=== PATIENT | male | born 1940 | race Caucasian/White ===

== ENCOUNTER 2020-03-31 07:53 | Outpatient (REF) | payer MEDICARE, OTHER, SELFPAY ==
[2020-03-31 11:59] LABS: Prostate Specific Antigen 1.48 ng/mL (<0.05-4.0)
== END 2020-03-31 07:54 | disposition home or self-care (01) ==
LOC: HO.HMGCLDS 07:53
PROVIDERS: PCP Internal Medicine; Visit Provider Physician Assistant Surgical
DX: N40.0 Benign prostatic hyperplasia without lower urinary tract symptoms (principal); Z12.5 Encounter for screening for malignant neoplasm of prostate
CPT/HCPCS: 84153

== ENCOUNTER 2021-02-15 11:42 | Outpatient (REF) | payer MEDICARE, OTHER, SELFPAY ==
[2021-02-15 14:36] LABS: Alanine Aminotransferase 15 U/L (0-40); Albumin Level 4.3 g/dL (3.5-5.0); Alkaline Phosphatase 58 U/L (39-117); Anion Gap 13 (12-20); Aspartate Amino Transferase 17 U/L (5-37); Bilirubin Direct 0.2 mg/dL (0.0-0.5); Bilirubin Total 0.5 mg/dL (0.0-1.0); Blood Urea Nitrogen 21 mg/dL (9-16); Carbon Dioxide 26 mmol/L (22-29); Chloride 105 mmol/L (96-108); Cholesterol 227 mg/dL; Estimated Glomerular Filt Rate > 60; Glucose Random 72 mg/dL (60-115); HDL Cholesterol 63 mg/dL; LDL Cholesterol Calculated 133 mg/dl; Potassium 4.7 mmol/L (3.3-5.1); Sodium 139 mmol/L (135-145); Triglycerides 157 mg/dL
== END 2021-02-15 11:43 | disposition home or self-care (01) ==
LOC: HO.10HDL 11:42
PROVIDERS: Visit Provider Internal Medicine
DX: I10 Essential (primary) hypertension (principal)
CPT/HCPCS: 36415; 80048; 80061; 80076

== ENCOUNTER 2021-03-28 07:43 | Outpatient (REF) | payer MEDICARE, OTHER, SELFPAY | END 2021-03-28 07:44 | disposition home or self-care (01) | LOC: HO.HMGCLDS 07:43 | PROVIDERS: PCP Internal Medicine; Visit Provider Physician Assistant Surgical | DX: R97.20 Elevated prostate specific antigen [PSA] (principal); Z12.5 Encounter for screening for malignant neoplasm of prostate | CPT/HCPCS: 36415; 84153 ==

== ENCOUNTER 2021-04-26 11:14 | Outpatient (REF) | payer MEDICARE, OTHER, SELFPAY ==
[2021-04-26 14:10] LABS: Appearance Urine CLEAR; Color Urine YELLOW; Glucose Urine UA NEG (NEG); Leukocyte Esterase Urine NEG (NEG); Nitrite Urine NEG (NEG); Specific Gravity - Urine <= 1.005 (1.005-1.025); Urine Blood NEG (NEG); Urine Ketones NEG (NEG); Urine Protein NEG (NEG-TRACE)
[2021-04-26 14:12] LABS: Hematocrit 42.2 % (42.0-52.0); Hemoglobin 14.4 g/dl (14.0-18.0); Mean Corpuscular HGB Conc 34.1 g/dl (31.0-36.0); Mean Corpuscular Hemoglobin 32.4 pg (27.0-33.0); Mean Corpuscular Volume 94.8 fL (80.0-98.0); Mean Platelet Volume 9.1 fL (9.4-12.4); Platelet Count 155 X10*3/uL (160-400); Red Blood Count 4.45 X10*6/uL (4.60-5.80); Red Cell Distribution Width 13.2 % (11.0-16.0); White Blood Count 6.3 X10*3/uL (4.8-10.8)
[2021-04-26 14:28] LABS: Alanine Aminotransferase 19 U/L (0-40); Albumin Level 3.6 g/dL (3.5-5.0); Alkaline Phosphatase 45 U/L (39-117); Anion Gap 10 (12-20); Aspartate Amino Transferase 15 U/L (5-37); Bilirubin Direct 0.2 mg/dL (0.0-0.5); Bilirubin Total 0.5 mg/dL (0.0-1.0); Blood Urea Nitrogen 17 mg/dL (9-16); Calcium 8.9 mg/dL (8.4-10.2); Carbon Dioxide 29 mmol/L (22-29); Chloride 106 mmol/L (96-108); Cholesterol 214 mg/dL; Estimated Glomerular Filt Rate 57; Glucose Random 127 mg/dL (60-115); HDL Cholesterol 57 mg/dL; LDL Cholesterol Calculated 127 mg/dl; Potassium 4.3 mmol/L (3.3-5.1); Sodium 141 mmol/L (135-145); Total Protein 6.2 g/dL (6.5-8.0); Triglycerides 151 mg/dL
[2021-04-26 14:49] LABS: Thyroid Stimulating Hormone 0.82 uIU/mL (0.32-4.0)
== END 2021-04-26 11:15 | disposition home or self-care (01) ==
LOC: HO.HMGCLDS 11:14
PROVIDERS: PCP Internal Medicine; Visit Provider Internal Medicine
DX: F41.1 Generalized anxiety disorder (principal); I10 Essential (primary) hypertension
CPT/HCPCS: 36415; 80048; 80061; 80076; 81003; 84443; 85027

== ENCOUNTER 2021-08-16 12:27 | Outpatient (REF) | payer MEDICARE, OTHER, SELFPAY ==
[2021-08-16 14:37] LABS: Prostate Specific Antigen 1.41 ng/mL (<0.05-4.0)
== END 2021-08-16 12:28 | disposition home or self-care (01) ==
LOC: HO.HMGCLDS 12:27
PROVIDERS: Visit Provider Physician Assistant Surgical
DX: Z12.5 Encounter for screening for malignant neoplasm of prostate (principal); R97.20 Elevated prostate specific antigen [PSA]
CPT/HCPCS: 36415; 84153

== ENCOUNTER 2022-05-23 11:41 | Outpatient (REF) | payer MEDICARE, OTHER, SELFPAY ==
--- NOTE | ~2022-05-23 | XR_ITS ---
EXAMINATION: XR SHOULDER, RIGHT XR SHOULDER, LEFT CLINICAL INFORMATION: Right and left shoulder pain. COMPARISON: None TECHNIQUE: AP, Grashey, and scapular Y views of the right and left shoulder. FINDINGS: RIGHT SHOULDER: Superior subluxation of the humeral head indicating complete, underlying rotator cuff tendon tears. Bony remodeling of the acromial undersurface with acromioclavicular joint space widening and marginal osteophytes. Corticated ossifications adjacent to the acetabulum which could represent dystrophic ossification versus remote fracture fragments. Glenohumeral joint space narrowing with marginal osteophytes. No acute fracture. No concerning lytic or blastic osseous lesion. LEFT SHOULDER: Superior subluxation of the humeral head indicating underlying rotator cuff tendon tears. Prominent acromioclavicular joint space narrowing with marginal osteophytes and subacromial spurring. Glenohumeral joint space narrowing with marginal osteophytes. No acute fracture. No concerning lytic or blastic osseous lesion. XR/XR shoulder LT min 2V IMPRESSION: Right Shoulder: Superior subluxation of the humeral head indicating complete, underlying rotator cuff tendon tears. Bony remodeling of the acromial undersurface with acromioclavicular joint space widening. Moderate glenohumeral osteoarthritis. Left Shoulder: Superior subluxation of the humeral head indicating underlying rotator cuff tendon tears. [id number] acromioclavicular and mild glenohumeral osteoarthritis.
--- NOTE | ~2022-05-23 | XR_ITS ---
EXAMINATION: XR SHOULDER, RIGHT XR SHOULDER, LEFT CLINICAL INFORMATION: Right and left shoulder pain. COMPARISON: None TECHNIQUE: AP, Grashey, and scapular Y views of the right and left shoulder. FINDINGS: RIGHT SHOULDER: Superior subluxation of the humeral head indicating complete, underlying rotator cuff tendon tears. Bony remodeling of the acromial undersurface with acromioclavicular joint space widening and marginal osteophytes. Corticated ossifications adjacent to the acetabulum which could represent dystrophic ossification versus remote fracture fragments. Glenohumeral joint space narrowing with marginal osteophytes. No acute fracture. No concerning lytic or blastic osseous lesion. LEFT SHOULDER: Superior subluxation of the humeral head indicating underlying rotator cuff tendon tears. Prominent acromioclavicular joint space narrowing with marginal osteophytes and subacromial spurring. Glenohumeral joint space narrowing with marginal osteophytes. No acute fracture. No concerning lytic or blastic osseous lesion. XR/XR shoulder RT min 2V IMPRESSION: Right Shoulder: Superior subluxation of the humeral head indicating complete, underlying rotator cuff tendon tears. Bony remodeling of the acromial undersurface with acromioclavicular joint space widening. Moderate glenohumeral osteoarthritis. Left Shoulder: Superior subluxation of the humeral head indicating underlying rotator cuff tendon tears. [id number] acromioclavicular and mild glenohumeral osteoarthritis.
== END 2022-05-23 11:42 | disposition home or self-care (01) ==
LOC: HO.HMGCX 11:41
PROVIDERS: PCP Internal Medicine; Visit Provider Internal Medicine
DX: M25.511 Pain in right shoulder (principal); M25.512 Pain in left shoulder
CPT/HCPCS: 73030

== ENCOUNTER → 2022-06-24 10:53 | Outpatient (BNVA) | payer MEDICARE, OTHER, SELFPAY | PROVIDERS: PCP Internal Medicine; Visit Provider Physician Assistant | DX: M12.811 Other specific arthropathies, not elsewhere classified, right shoulder (principal); M12.812 Other specific arthropathies, not elsewhere classified, left shoulder | CPT/HCPCS: 99202 ==

== ENCOUNTER 2023-03-20 09:53 | Outpatient (AMB) | payer MEDICARE, OTHER, SELFPAY ==
[2023-03-20 09:58] VITALS: BP 136/70; PULSE 64; O2SAT 98; BMI 22.8
--- NOTE | 2023-03-20 09:58 | A.OFFPC_ITS ---
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 Accompanied by: Spouse Allergies No Known Allergies [No Known Allergies*] Allergy (Verified 03/21/23 10:33) Medication List - Last Reconciled 03/21/23 by Quique Pinon MD atenolol 25 mg PO DAILY finasteride 5 mg PO DAILY sertraline 50 mg PO DAILY sertraline 25 mg PO DAILY tamsulosin 0.4 mg PO DAILY trazodone 50 mg PO BEDTIME PRN Tobacco use date assessed: 09/12/22 Fall risk assessment: No Falls in past year Last assessed Fall Risk: 03/20/23 Dental Screening Dental Screen Date: 03/20/23 Did you have a dental visit in the last 12 months?: Yes Did you have a dental problem in the last 6 months where you did not have access to dental care?: No Was dental information given to patient?: Patient has dentist HPI 6mth f/u HPI Details 82 yr old male presents to the office to discuss his chronic medical conditions. Compliant with medications. Not reporting any side effects. Able to function and do all activities of daily living. [facility] Medical History Benign prostatic hyperplasia with elevated prostate specific antigen (PSA) Generalized anxiety disorder Hypertension Surgical History History of skin graft History of eye surgery Family History Mother No problems noted. Father No problems noted. Social History Housing: House Alcohol intake: never Patient Tobacco Use Status: Former Tobacco user e-Cigarette/Vaping Use: Never Used Second Hand Smoke Exposure: No service: No Current occupational status: retired Cognitive needs: No Hearing needs: No Vision needs: No Questionnaire Thrive Questionnaire Date Thrive assessed: 09/12/22 ZAKI-7 AMB Questionnaire ZAKI-7 Date ZAKI - 7 assessed: 09/12/22 Source: Developed by Drs. Shawn Adrian, Ashely Srivastava, Robby Kelley and colleagues, with an educational praveen from [employer]. Physical exam (Primary Care) Vital Signs: Last Vital Signs Pulse 64 03/20/23 09:58 BP 136/70 03/20/23 09:58 Pulse Ox 98 03/20/23 09:58 Oxygen Delivery Method Room Air 03/20/23 09:58 BMI result Body Mass Index 22.8 Tobacco/Smoking Status: Tobacco use Status Tobacco use date assessed 09/12/22 03/20/23 09:58 Patient Tobacco Use Status Former Tobacco user 03/20/23 09:58 e-Cigarette/Vaping Use Never Used 03/20/23 09:58 Thrive Assessment: Date of Thrive Assessment Date Thrive assessed 09/12/22 03/20/23 09:58 Const General: cooperative and healthy appearing Nutritional Appearance: well nourished Orientation/consciousness: patient oriented x3 Limitations: no limitations HENMT Head: Yes normal to inspection Eyes General: appearance normal, both eyes and all related structures Neck Neck: Yes normal visual inspection Chest Chest palpation & inspection: normal palpation of entire chest wall Resp Effort & Inspection: normal respiratory effort Neuro General: patient oriented x3 Assessment and Plan Assessment & Plan (1) Generalized anxiety disorder: Code(s): F41.1 - Generalized anxiety disorder Plan: Condition is stable. Continue medications at the same dosage. Coding Level of Care Code Est Pt Level 3 (72939) Diagnoses Generalized anxiety disorder F41.1
== END 2023-03-20 10:39 | disposition home or self-care (01) ==
PROVIDERS: Visit Provider Internal Medicine
DX: F41.1 Generalized anxiety disorder (principal)
CPT/HCPCS: 99213

== ENCOUNTER 2023-09-18 13:04 | Outpatient (REF) | payer MEDICARE, OTHER, SELFPAY ==
[2023-09-18 16:39] LABS: Prostate Specific Antigen 1.24 ng/mL (<0.05-4.0)
== END 2023-09-18 13:05 | disposition home or self-care (01) ==
LOC: HO.HMGCLDS 13:04
PROVIDERS: PCP Internal Medicine; Visit Provider Urology
DX: R97.20 Elevated prostate specific antigen [PSA] (principal); Z12.5 Encounter for screening for malignant neoplasm of prostate
CPT/HCPCS: 36415; 84153

== ENCOUNTER 2023-09-25 09:53 | Outpatient (AMB) | payer MEDICARE, OTHER, SELFPAY ==
--- NOTE | 2023-09-25 09:58 | MHC.PC.OV ---
Vital Signs 09/25/23 10:01 Height 5 ft 11 in Weight 164 lb 2 oz BMI 22.9 BP 110/78 Blood Pressure Location Lt brachial Position Sitting Pulse 64 Pulse Source Pulse Oximeter Pulse Oximetry (%) 96 Oxygen Delivery Method Room Air Intake Visit Reasons: 6mth f/u Intake Note: Patient is here to follow up on BPH, HTN, ZAKI. Quality Associate Required: No Manager Mall: Not Required per policy Accompanied by: Spouse Allergies No Known Allergies [No Known Allergies*] Allergy (Verified 09/25/23 10:00) Tobacco use date assessed: 09/25/23 Fall risk assessment: No Falls in past year Last assessed Fall Risk: 09/25/23 Dental Screening Dental Screen Date: 09/25/23 Did you have a dental visit in the last 12 months?: Yes Did you have a dental problem in the last 6 months where you did not have access to dental care?: No Was dental information given to patient?: Patient has dentist HPI 6mth f/u HPI Details 83-year-old male presents to the office to discuss his chronic medical conditions. 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 At baseline state of health. Able to function and do all activities of daily living. Continues to drive. [facility] Medical History Benign prostatic hyperplasia with elevated prostate specific antigen (PSA) Generalized anxiety disorder Hypertension Surgical History History of skin graft History of eye surgery Family History Mother No problems noted. Father No problems noted. Social History Housing: House Alcohol intake: never Patient Tobacco Use Status: Former Tobacco user e-Cigarette/Vaping Use: Never Used Second Hand Smoke Exposure: No service: No Current occupational status: retired Cognitive needs: No Hearing needs: No Vision needs: No Questionnaire PHQ-9 Over the last 2 weeks, how often have you been bothered by any of the following problems? 1. Little interest or pleasure in doing things: not at all 2. Feeling down, depressed, or hopeless: not at all 3. Trouble falling or staying asleep, or sleeping too much: not at all 4. Feeling tired or having little energy: not at all 5. Poor appetite or overeating: not at all 6. Feeling bad about yourself - or that you are a failure or have let yourself or your family down: not at all 7. Trouble concentrating on things, such as reading the newspaper or watching television: not at all 8. Moving or speaking so slowly that other people could have noticed. Or the opposite - being so fidgety or restless that you have been moving around a lot more than usual: not at all 9. Thoughts that you would be better off or of hurting yourself in some way: not at all Total score: 0 Depression Screening Interpretation: Negative Depression Screening Done: Yes Source: Developed by Drs. Shawn Adrian, Ashely Srivastava, Robby Kelley and colleagues, with an educational praveen from [employer]. Thrive Questionnaire Date Thrive assessed: 09/25/23 I am a: Patient What is your living situation today?: I have a steady place to live Within the past 12 months, did the food you bought not last and you didn't have the money to get more?: Never true Within the past 12 months, did you worry whether your food would run out before you got money to buy more?: Never true Do you have trouble paying for medicines?: No Do you have trouble getting transportation to medical appointments?: No Do you have trouble paying your heating and electricity bill?: No Do you have trouble taking care of your child, family member or friend?: No Do you have trouble with day-to-day activities such as bathing, preparing meals, shopping, managing finances, etc.?: No Are you currently unemployed and looking for a job?: No Are you interested in more education?: No Currently or been in a relationship where the following occur: no concerns reported THRIVE Score: 0 AUDIT C Alcohol Use Questionnaire (AUDIT-C) 1. How often do you have a drink containing alcohol?: Never Total Score: 0 ZAKI-7 AMB Questionnaire ZAKI-7 Date ZAKI - 7 assessed: 09/25/23 Feeling nervous, anxious, or on edge: 0 = Not at all Not being able to stop or control worryin = Not at all Worrying too much about different things: 0 = Not at all Trouble relaxin = Not at all Being so restless that it is hard to sit still: 0 = Not at all Becoming easily annoyed or irritable: 0 = Not at all Feeling afraid as if something awful might happen: 0 = Not at all Total ZAKI-7 score (0-4 normal; 5-9 mild; 10-14 moderate; 15-21 severe): 0 Source: Developed by Drs. Shawn Adrian, Ashely Srivastava, Robby Kelley and colleagues, with an educational praveen from [employer]. Physical exam (Primary Care) Vital Signs: Last Vital Signs Pulse 64 09/25/23 10:01 BP 110/78 09/25/23 10:01 Pulse Ox 96 09/25/23 10:01 Oxygen Delivery Method Room Air 09/25/23 10:01 Care Plan Goal for BP management: Blood pressure is in range. Continue medications at same dosage. BMI result Body Mass Index 22.9 Tobacco/Smoking Status: Tobacco use Status Tobacco use date assessed 09/25/23 09/25/23 10:03 Patient Tobacco Use Status Former Tobacco user 09/25/23 10:03 e-Cigarette/Vaping Use Never Used 09/25/23 10:03 PHQ-9: PHQ-9 Score PHQ-9: Total score 0 09/25/23 10:03 Depression Screening Interpretation: Negative Thrive Assessment: Date of Thrive Assessment Date Thrive assessed 09/25/23 09/25/23 10:03 Currently or been in a relationship where the following occur: no concerns reported Advance Care Planning discussion: Exists, not on file Date of discussion: 09/25/23 Who was present: Patient and his Forms completed: Health Care Proxy and MOLST Time spent: 1-15 minutes, not on file Actual minutes spent: 5 Const General: cooperative and healthy appearing Nutritional Appearance: well nourished Orientation/consciousness: patient oriented x3 Limitations: no limitations HENMT Head: Yes normal to inspection Eyes General: appearance normal, both eyes and all related structures Neck Neck: Yes normal visual inspection Chest Chest palpation & inspection: normal palpation of entire chest wall Resp Effort & Inspection: normal respiratory effort Neuro General: patient oriented x3 Assessment and Plan Assessment & Plan (1) Generalized anxiety disorder: Code(s): F41.1 - Generalized anxiety disorder Plan: Medical condition is stable. Continue the medication at the same dosage. (2) Hypertension: Code(s): I10 - Essential (primary) hypertension Qualifiers: Hypertension type: essential hypertension Qualified Code(s): I10 - Essential (primary) hypertension Plan: Blood work has been ordered.. Continue medications at the same dosage. Counseling on the importance of diet and exercise done. Orders: Orders Thyroid Stimulating Hormone Today F41.1 - Generalized anxiety disorder, I10 - Essential (primary) hypertension UA and rflx microscopic Today F41.1 - Generalized anxiety disorder, I10 - Essential (primary) hypertension Complete Blood Count no Diff Today F41.1 - Generalized anxiety disorder, I10 - Essential (primary) hypertension Basic Metabolic Panel Today F41.1 - Generalized anxiety disorder, I10 - Essential (primary) hypertension Liver Panel Today F41.1 - Generalized anxiety disorder, I10 - Essential (primary) hypertension Lipid Panel Today F41.1 - Generalized anxiety disorder, I10 - Essential (primary) hypertension Medications: Refilled finasteride 5 mg PO DAILY 90 tabs 0RF sertraline 50 mg PO DAILY 90 tabs 1RF sertraline 25 mg PO DAILY 90 tabs 1RF atenolol 25 mg PO DAILY 90 tabs 1RF Coding Level of Care Code Est Pt Level 4 (71200) Complex EM visit Add On G2211 Diagnoses Generalized anxiety disorder F41.1 Essential hypertension I10 Hypertension type: essential hypertension Additional Codes Vital Signs *Quality* - Advance Care Planning discussion: Exists, not on file ([id number]) Vital Signs *Quality* - Time spent: 1-15 minutes, not on file ([id number])
[2023-09-25 10:01] VITALS: BP 110/78; PULSE 64; O2SAT 96; BMI 22.9
== END 2023-09-25 11:00 | disposition home or self-care (01) ==
PROVIDERS: PCP Internal Medicine; Visit Provider Internal Medicine
DX: F41.1 Generalized anxiety disorder (principal); I10 Essential (primary) hypertension; Z00.00 Encounter for general adult medical examination without abnormal findings
CPT/HCPCS: 1123F; 1124F; 99214; G2211

== ENCOUNTER 2024-04-01 09:51 | Outpatient (AMB) | payer MEDICARE, OTHER, SELFPAY ==
--- NOTE | 2024-04-01 09:55 | MHC.PC.OV ---
Vital Signs 04/01/24 09:57 Height 5 ft 11 in Weight 164 lb 8 oz BMI 22.9 BP 130/72 Blood Pressure Location Lt brachial Position Sitting Pulse 67 Pulse Source Pulse Oximeter Pulse Oximetry (%) 97 Oxygen Delivery Method Room Air Intake Visit Reasons: 6mth f/u Intake Note: Patient is here to follow up on HTN, BPH. Information Delivery Analyst Required: No Wireless Technician: Present Accompanied by: Spouse Allergies No Known Allergies [No Known Allergies*] Allergy (Verified 04/01/24 13:47) Medication List - Last Reconciled 04/01/24 by Quique Pinon MD atenolol 25 mg PO DAILY finasteride 5 mg PO DAILY sertraline 50 mg PO DAILY sertraline 25 mg PO DAILY tamsulosin 0.4 mg PO DAILY trazodone 50 mg PO BEDTIME PRN Tobacco use date assessed: 04/01/24 Fall risk assessment: No Falls in past year Last assessed Fall Risk: 04/01/24 Dental Screening Dental Screen Date: 09/25/23 HPI 6mth f/u HPI Details 83-year-old male presents to the office to discuss his chronic medical conditions. Patient is at baseline state of health. Compliant with medications. Able to function and do all activities of daily living. He takes 75 mg of sertraline and 50 mg of trazodone every day. Able to sleep well, continues to drive and reports no symptoms of urinary incontinence. [facility] Medical History Hypertension Generalized anxiety disorder Benign prostatic hyperplasia with elevated prostate specific antigen (PSA) Surgical History History of skin graft History of eye surgery Family History Mother No problems noted. Father No problems noted. Social History Housing: House Alcohol intake: never Patient Tobacco Use Status: Former Tobacco user e-Cigarette/Vaping Use: Never Used Second Hand Smoke Exposure: Yes service: No Current occupational status: retired Cognitive needs: No Hearing needs: No Vision needs: No Questionnaire Thrive Questionnaire Date Thrive assessed: 09/25/23 AUDIT C Alcohol Use Questionnaire (AUDIT-C) 3. How often do you have six or more drinks on one occasion?: Never Total Score: 0 ZAKI-7 AMB Questionnaire ZAKI-7 Date ZAKI - 7 assessed: 09/25/23 Source: Developed by Drs. Shawn Adrian, Ashely Srivastava, Robby Kelley and colleagues, with an educational praveen from [employer]. Physical exam (Primary Care) Vital Signs: Last Vital Signs Pulse 67 04/01/24 09:57 BP 130/72 04/01/24 09:57 Pulse Ox 97 04/01/24 09:57 Oxygen Delivery Method Room Air 04/01/24 09:57 BMI result Body Mass Index 22.9 Tobacco/Smoking Status: Tobacco use Status Tobacco use date assessed 04/01/24 04/01/24 09:59 Patient Tobacco Use Status Former Tobacco user 04/01/24 09:59 e-Cigarette/Vaping Use Never Used 04/01/24 09:59 Thrive Assessment: Date of Thrive Assessment Date Thrive assessed 09/25/23 04/01/24 09:59 Const General: cooperative and healthy appearing Nutritional Appearance: well nourished Orientation/consciousness: patient oriented x3 Limitations: no limitations HENMT Head: Yes normal to inspection Eyes General: appearance normal, both eyes and all related structures Neck Neck: Yes normal visual inspection Chest Chest palpation & inspection: normal palpation of entire chest wall Resp Effort & Inspection: normal respiratory effort Neuro General: patient oriented x3 Coding Level of Care Code Est Pt Level 4 (86255) Complex EM visit Add On G2211 Diagnoses Generalized anxiety disorder F41.1 Essential hypertension I10 Hypertension type: essential hypertension Benign prostatic hyperplasia with elevated prostate specific antigen (PSA) N40.0; R97.20 Assessment & Plan Assessment & Plan (1) Generalized anxiety disorder: Code(s): F41.1 - Generalized anxiety disorder Category: Medical Plan: Continue sertraline at 75 mg a day. To take trazodone at 50 mg a day at night. (2) Hypertension: Code(s): I10 - Essential (primary) hypertension Category: Medical Qualifiers: Hypertension type: essential hypertension Qualified Code(s): I10 - Essential (primary) hypertension Plan: Blood pressure is in range. Continue medications at same dosage. (3) Benign prostatic hyperplasia with elevated prostate specific antigen (PSA): Code(s): N40.0 - Benign prostatic hyperplasia without lower urinary tract symptoms; R97.20 - Elevated prostate specific antigen [PSA] Category: Medical Plan: PSA reviewed. Medications: Refilled finasteride 5 mg PO DAILY 90 tabs 0RF sertraline 50 mg PO DAILY 90 tabs 1RF atenolol 25 mg PO DAILY 90 tabs 1RF sertraline 25 mg PO DAILY 90 tabs 1RF
[2024-04-01 09:57] VITALS: BP 130/72; PULSE 67; O2SAT 97; BMI 22.9
== END 2024-04-01 10:45 | disposition home or self-care (01) ==
PROVIDERS: PCP Internal Medicine; Visit Provider Internal Medicine
DX: F41.1 Generalized anxiety disorder (principal); I10 Essential (primary) hypertension; N40.0 Benign prostatic hyperplasia without lower urinary tract symptoms; R97.20 Elevated prostate specific antigen [PSA]

== ENCOUNTER → 2024-04-01 09:51 | Outpatient (BNVA) | payer MEDICARE, OTHER, SELFPAY | PROVIDERS: PCP Internal Medicine; Visit Provider Internal Medicine | DX: F41.1 Generalized anxiety disorder (principal); I10 Essential (primary) hypertension; N40.0 Benign prostatic hyperplasia without lower urinary tract symptoms; R97.20 Elevated prostate specific antigen [PSA] | CPT/HCPCS: 99212 ==

== ENCOUNTER 2024-04-07 08:42 | Outpatient (REF) | payer MEDICARE, OTHER, SELFPAY ==
[2024-04-07 10:24] LABS: Appearance Urine Clear; Color Urine Dark Yellow; Glucose Urine UA Negative (Negative); Leukocyte Esterase Urine Negative (Negative); Nitrite Urine Negative (Negative); PH 5.5 (5.0-9.0); Specific Gravity - Urine 1.025 (1.005-1.025); Urine Blood Negative (Negative); Urine Ketones Trace mg/dL (Negative); Urine Protein Trace mg/dL (Neg-Trace)
[2024-04-07 10:29] LABS: Hematocrit 41.9 % (42.0-52.0); Hemoglobin 14.7 g/dl (14.0-18.0); Mean Corpuscular HGB Conc 35.1 g/dl (31.0-36.0); Mean Corpuscular Hemoglobin 33.2 pg (27.0-33.0); Mean Corpuscular Volume 94.6 fL (80.0-98.0); Mean Platelet Volume 9.1 fL (9.4-12.4); Platelet Count 140 X10*3/uL (160-400); Red Blood Count 4.43 X10*6/uL (4.60-5.80); Red Cell Distribution Width 13.3 % (11.0-16.0); White Blood Count 6.7 X10*3/uL (4.8-10.8)
[2024-04-07 11:02] LABS: Alanine Aminotransferase 16 U/L (0-40); Alkaline Phosphatase 43 U/L (39-117); Anion Gap 10 (12-20); Aspartate Amino Transferase 22 U/L (5-37); Bilirubin Direct 0.2 mg/dL (0.0-0.5); Bilirubin Total 0.6 mg/dL (0.0-1.0); Blood Urea Nitrogen 26 mg/dL (9-16); Calcium 8.7 mg/dL (8.4-10.2); Carbon Dioxide 29 mmol/L (22-29); Chloride 108 mmol/L (96-108); Cholesterol 244 mg/dL (<200); Estimated Glomerular Filt Rate 51; Glucose Random 96 mg/dL (60-115); HDL Cholesterol 62 mg/dL (>40); LDL Cholesterol Calculated 162 mg/dL (<100); Potassium 4.6 mmol/L (3.3-5.1); Sodium 142 mmol/L (135-145); Thyroid Stimulating Hormone 1.01 uIU/mL (0.32-4.0); Triglycerides 102 mg/dL (<150)
== END 2024-04-07 08:43 | disposition home or self-care (01) ==
LOC: HO.HMGCLDS 08:42
PROVIDERS: PCP Internal Medicine; Visit Provider Internal Medicine
DX: F41.1 Generalized anxiety disorder (principal); I10 Essential (primary) hypertension
CPT/HCPCS: 36415; 80048; 80061; 80076; 81003; 84443; 85027

== ENCOUNTER 2024-09-16 08:30 | Outpatient (REF) | payer MEDICARE, OTHER, SELFPAY ==
[2024-09-16 11:22] LABS: Prostate Specific Antigen 0.97 ng/mL (<0.05-4.0)
== END 2024-09-16 08:31 | disposition home or self-care (01) ==
LOC: HO.HMGCLDS 08:30
PROVIDERS: PCP Internal Medicine; Visit Provider Urology
DX: N40.1 Benign prostatic hyperplasia with lower urinary tract symptoms (principal); N13.8 Other obstructive and reflux uropathy; Z12.5 Encounter for screening for malignant neoplasm of prostate
CPT/HCPCS: 36415; 84153

== ENCOUNTER 2024-10-14 09:53 | Outpatient (AMB) | payer MEDICARE, OTHER, SELFPAY ==
--- NOTE | 2024-10-14 10:00 | A.OFFPC_ITS ---
Vital Signs 10/14/24 10:01 Height 5 ft 11 in Weight 163 lb BMI 22.7 BP 120/64 Blood Pressure Location Lt brachial Position Sitting Pulse 63 Pulse Source Pulse Oximeter Temp 97.3 F Temp Source Temporal Artery Scan Pulse Oximetry (%) 96 Oxygen Delivery Method Room Air Intake Visit Reasons: 6mth f/u Intake Note: Patient is here to follow up on BPH, HTN. 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: Present Accompanied by: Spouse Allergies No Known Allergies (No Known Allergies*) Allergy (Verified 10/14/24 10:49) Medication List - Last Reconciled 10/14/24 by Quique Pinon MD atenolol 25 mg PO DAILY finasteride 5 mg PO DAILY sertraline 25 mg PO DAILY sertraline 50 mg PO DAILY tamsulosin 0.4 mg PO DAILY trazodone 50 mg PO BEDTIME PRN Tobacco use date assessed: 10/14/24 Fall risk assessment: No Falls in past year Last assessed Fall Risk: 10/14/24 Dental Screening Dental Screen Date: 10/14/24 Did you have a dental visit in the last 12 months?: Yes Did you have a dental problem in the last 6 months where you did not have access to dental care?: No Was dental information given to patient?: Patient has dentist HPI 6mth f/u HPI Details Routine follow up. No concerns. Compliant with meds and do all ADL's PFSH Medical History Hypertension Generalized anxiety disorder Benign prostatic hyperplasia with elevated prostate specific antigen (PSA) Surgical History History of skin graft History of eye surgery Family History Mother No problems noted. Father No problems noted. Social History Housing: House Alcohol intake: never Patient Tobacco Use Status: Former Tobacco user e-Cigarette/Vaping Use: Never Used Second Hand Smoke Exposure: Yes service: No Current occupational status: retired Cognitive needs: No Hearing needs: No Vision needs: No Questionnaire PHQ-9 Over the last 2 weeks, how often have you been bothered by any of the following problems? 1. Little interest or pleasure in doing things: not at all 2. Feeling down, depressed, or hopeless: not at all 3. Trouble falling or staying asleep, or sleeping too much: not at all 4. Feeling tired or having little energy: not at all 5. Poor appetite or overeating: not at all 6. Feeling bad about yourself - or that you are a failure or have let yourself or your family down: not at all 7. Trouble concentrating on things, such as reading the newspaper or watching television: not at all 8. Moving or speaking so slowly that other people could have noticed. Or the opposite - being so fidgety or restless that you have been moving around a lot more than usual: not at all 9. Thoughts that you would be better off or of hurting yourself in some way: not at all Total score: 0 Depression Screening Interpretation: Negative Depression Screening Done: Yes Source: Developed by Drs. Shawn Adrian, Ashely Srivastava, Robby Kelley and colleagues, with an educational praveen from [employer]. Thrive Questionnaire Date Thrive assessed: 10/12/24 I am a: Patient What is your living situation today?: I have a steady place to live Within the past 12 months, did the food you bought not last and you didn't have the money to get more?: Never true Within the past 12 months, did you worry whether your food would run out before you got money to buy more?: Never true Do you have trouble paying for medicines?: No Do you have trouble getting transportation to medical appointments?: No Do you have trouble paying your heating and electricity bill?: No Do you have trouble taking care of your child, family member or friend?: No Do you have trouble with day-to-day activities such as bathing, preparing meals, shopping, managing finances, etc.?: No Are you currently unemployed and looking for a job?: No Are you interested in more education?: No Please select the resources that you would like help with: None Currently or been in a relationship where the following occur: No concerns reported THRIVE Score: 0 AUDIT C Alcohol Use Questionnaire (AUDIT-C) 1. How often do you have a drink containing alcohol?: Never Total Score: 0 ZAKI-7 AMB Questionnaire ZAKI-7 Date ZAKI - 7 assessed: 10/14/24 Feeling nervous, anxious, or on edge: 0 = Not at all Not being able to stop or control worryin = Not at all Worrying too much about different things: 0 = Not at all Trouble relaxin = Not at all Being so restless that it is hard to sit still: 0 = Not at all Becoming easily annoyed or irritable: 0 = Not at all Feeling afraid as if something awful might happen: 0 = Not at all Total ZAKI-7 score (0-4 normal; 5-9 mild; 10-14 moderate; 15-21 severe): 0 Source: Developed by Drs. Shawn Adrian, Ashely Srivastava, Robby Kelley and colleagues, with an educational praveen from [employer]. Physical exam (Primary Care) Vital Signs: Last Vital Signs Temp 97.3 F 10/14/24 10:01 Pulse 63 10/14/24 10:01 BP 120/64 10/14/24 10:01 Pulse Ox 96 10/14/24 10:01 Oxygen Delivery Method Room Air 10/14/24 10:01 BMI result Body Mass Index 22.7 Tobacco/Smoking Status: Tobacco use Status Tobacco use date assessed 10/14/24 10/14/24 10:10 Patient Tobacco Use Status Former Tobacco user 10/14/24 10:10 e-Cigarette/Vaping Use Never Used 10/14/24 10:10 PHQ-9: PHQ-9 Score PHQ-9: Total score 0 10/14/24 10:10 Depression Screening Interpretation: Negative Thrive Assessment: Date of Thrive Assessment Date Thrive assessed 10/12/24 10/14/24 10:10 Currently or been in a relationship where the following occur: No concerns reported Const General: cooperative and healthy appearing Nutritional Appearance: well nourished Orientation/consciousness: patient oriented x3 Limitations: no limitations HENMT Head: Yes normal to inspection Eyes General: appearance normal, both eyes and all related structures Neck Neck: Yes normal visual inspection Chest Chest palpation & inspection: normal palpation of entire chest wall Resp Effort & Inspection: normal respiratory effort Neuro General: patient oriented x3 Coding Level of Care Code Est Pt Level 4 (35364) Complex EM visit Add On G2211 Diagnoses Essential hypertension I10 Hypertension type: essential hypertension Generalized anxiety disorder F41.1 Assessment & Plan Assessment & Plan (1) Hypertension: Code(s): I10 - Essential (primary) hypertension Category: Medical Qualifiers: Hypertension type: essential hypertension Qualified Code(s): I10 - Essential (primary) hypertension Plan: Continue current medications. (2) Generalized anxiety disorder: Code(s): F41.1 - Generalized anxiety disorder Category: Medical Plan: Continue Sertraline Medications: Refilled atenolol 25 mg PO DAILY 90 tabs 1RF finasteride 5 mg PO DAILY 90 tabs 0RF sertraline 25 mg PO DAILY 90 tabs 1RF sertraline 50 mg PO DAILY 90 tabs 1RF
[2024-10-14 10:01] VITALS: BP 120/64; PULSE 63; TEMP 36.3; O2SAT 96; BMI 22.7
== END 2024-10-14 10:52 | disposition home or self-care (01) ==
LOC: HO.HMCH 09:54
PROVIDERS: PCP Internal Medicine; Visit Provider Internal Medicine
DX: I10 Essential (primary) hypertension (principal); F41.1 Generalized anxiety disorder

== ENCOUNTER → 2024-10-14 09:53 | Outpatient (BNVA) | payer MEDICARE, OTHER, SELFPAY | PROVIDERS: PCP Internal Medicine; Visit Provider Internal Medicine | DX: I10 Essential (primary) hypertension (principal); F41.1 Generalized anxiety disorder; Z87.891 Personal history of nicotine dependence | CPT/HCPCS: 99212 ==

== ENCOUNTER 2024-10-19 08:34 | Outpatient (REF) | payer MEDICARE, OTHER, SELFPAY ==
[2024-10-19 10:15] LABS: Hematocrit 43.5 % (42.0-52.0); Hemoglobin 15.1 g/dl (14.0-18.0); Mean Corpuscular HGB Conc 34.7 g/dl (31.0-36.0); Mean Corpuscular Hemoglobin 32.8 pg (27.0-33.0); Mean Corpuscular Volume 94.6 fL (80.0-98.0); NRBC Abs Auto 0.000 X10*3/uL (0.0-0.012); NRBC Pct Auto 0.0 /100WBC (0.0-0.2); Platelet Count 149 X10*3/uL (160-400); Red Blood Count 4.60 X10*6/uL (4.60-5.80); White Blood Count 5.7 X10*3/uL (4.8-10.8)
[2024-10-19 10:19] LABS: Appearance Urine Clear; Glucose Urine UA Negative (Negative); PH 5.5 (5.0-9.0); Specific Gravity - Urine 1.025 (1.005-1.025); UMIC TRIGGER UA YES
[2024-10-19 10:52] LABS: Alanine Aminotransferase 17 U/L (0-40); Albumin Level 4.1 g/dL (3.5-5.0); Alkaline Phosphatase 48 U/L (39-117); Anion Gap 14 (12-20); Aspartate Amino Transferase 23 U/L (5-37); Blood Urea Nitrogen 31 mg/dL (9-16); Calcium 8.9 mg/dL (8.4-10.2); Carbon Dioxide 23 mmol/L (22-29); Chloride 109 mmol/L (96-108); Cholesterol 239 mg/dL (<200); Estimated Glomerular Filt Rate 50; HDL Cholesterol 57 mg/dL (>40); Potassium 4.5 mmol/L (3.3-5.1); Sodium 141 mmol/L (135-145); Thyroid Stimulating Hormone 0.94 uIU/mL (0.32-4.0); Total Protein 7.1 g/dL (6.5-8.0); Triglycerides 119 mg/dL (<150)
== END 2024-10-19 08:35 | disposition home or self-care (01) ==
LOC: HO.HMGCLDS 08:34
PROVIDERS: PCP Internal Medicine; Visit Provider Internal Medicine
DX: I10 Essential (primary) hypertension (principal); F41.1 Generalized anxiety disorder
CPT/HCPCS: 36415; 80048; 80061; 80076; 81001; 84443; 85027

== ENCOUNTER 2024-11-27 09:42 | Outpatient (AMB) | payer MEDICARE, OTHER, SELFPAY ==
--- NOTE | 2024-11-27 10:24 | MHC.OFFWIV ---
Intake Vital Signs 11/27/24 10:25 Height 5 ft 11 in Weight 161 lb BMI 22.5 BP 130/66 Blood Pressure Location Lt brachial Position Sitting Respiration 18 Pulse 66 Pulse Source Pulse Oximeter Temp 98.1 F Temp Source Oral Pulse Oximetry (%) 97 Oxygen Delivery Method Room Air Intake Visit Reasons: EP-Back and hip pain Intake Note: Pt is here today for a walk in visit. Pt c/o back pain and L hip pain that effects his L foot Patient Tobacco Use Status: Former Tobacco user Allergies No Known Allergies (No Known Allergies*) Allergy (Verified 11/27/24 10:34) HPI EP-Back and hip pain HPI Details Patient is an 84-year-old male comes to the walk-in clinic with his complaining of back and hip pain that affects his left foot. 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 He also had a wedding a few days prior to that, where he danced on the dance floor and had no symptoms at that time. He denies any current symptoms radiating into the leg or the foot. No cauda equina symptoms, numbness tingling or weakness. He does report a history of a left footdrop, which apparently resolved with increasing his strength and endurance with walking 5-7 miles a day with his . However they stopped that a few years ago, and he has been sedentary other than his work duties. He has been taking anti-inflammatories with minimal relief. [facility] Medical History Hypertension Generalized anxiety disorder Benign prostatic hyperplasia with elevated prostate specific antigen (PSA) Surgical History History of skin graft History of eye surgery Family History Mother No problems noted. Father No problems noted. Social History Housing: House Alcohol intake: never Patient Tobacco Use Status: Former Tobacco user e-Cigarette/Vaping Use: Never Used Second Hand Smoke Exposure: Yes service: No Current occupational status: retired Cognitive needs: No Hearing needs: No Vision needs: No Review of Systems Const All systems reviewed & are unremarkable except as noted in HPI and below Physical Exam Vital Signs: Last Vital Signs Temp 98.1 F 11/27/24 10:25 Pulse 66 11/27/24 10:25 Resp 18 11/27/24 10:25 BP 130/66 11/27/24 10:25 Pulse Ox 97 11/27/24 10:25 Oxygen Delivery Method Room Air 11/27/24 10:25 BMI result Body Mass Index 22.5 Const General: cooperative, healthy appearing, comfortable, no acute distress, alert, awake, Physically active and well groomed; No anxious, diaphoretic, ill appearing, intoxicated appearing, poor hygiene or tired appearing Nutritional Appearance: average body habitus Resp Effort & Inspection: normal respiratory effort Cardio Rate: regular rate General: Yes no CVA tenderness Back/Spine/Pelvis Back: no CVA tenderness, No mass, No erythema, No warmth and back tenderness Thoracic/Lumbar Spine: thoracic and lumbar spine normal to inspection, No Thoracic/lumbar spine scar(s), straight leg raise negative bilaterally, bend over test abnormal, pain with thoraco-lumbar ROM, paraspinal muscle tenderness, thoraco-lumbar ROM limited, thoraco-lumbar spasm, No thoracic spinal tenderness and No lumbar spinal tenderness Sacroiliac joints: not on the right and not on the left Sacrum: no swelling Skin Other: Good color, warm and dry Psych Appearance: grossly normal Mental Status: mental status grossly normal Speech and movement: Normal speech and movement present Affect: normal affect Attitude: cooperative Thought process: Normal thought process present Insight: Good insight present (Psych) Judgement: Good judgement present (Psych) Assessment & Plan Assessment & Plan (1) Left lumbar pain: Code(s): M54.50 - Low back pain, unspecified Plan Advised heat stretch and massage to the area, to keep gentle range of motion into help release the left lumbosacral strain with palpable spasm. As this just started a few days ago, and seems apparent to be muscular with no vertebral tenderness, negative straight leg raise bilaterally laterally and no symptoms radiating into the leg, x-ray not done at this time. He knows to follow up if symptoms persist for another week or 2, or to go to the emergency department with any worrisome symptoms. Medications: New cyclobenzaprine can take a second dose, to 10mg three times a day 5 mg PO TID 20 tabs 0RF muscle spasm Coding Level of Care Code Est Pt Level 4 (46505) Diagnoses Left lumbar pain M54.50
[2024-11-27 10:25] VITALS: BP 130/66; PULSE 66; RESP 18; TEMP 36.7; O2SAT 97; BMI 22.5
== END 2024-11-27 11:24 | disposition home or self-care (01) ==
LOC: HO.HMCWIC 09:42
PROVIDERS: PCP Internal Medicine; Visit Provider Physician Assistant Medical
DX: M54.50 Low back pain, unspecified (principal)

== ENCOUNTER → 2024-11-27 09:42 | Outpatient (BNVA) | payer MEDICARE, OTHER, SELFPAY | PROVIDERS: PCP Internal Medicine; Visit Provider Physician Assistant Medical | DX: M54.50 Low back pain, unspecified (principal); M25.552 Pain in left hip; Z87.891 Personal history of nicotine dependence | CPT/HCPCS: 99212 ==